=== PATIENT | male | born 2000 | race American Indian/Alaskan Native ===

== ENCOUNTER 2018-06-03 21:06 | Emergency (ER) | payer MEDICAID, OTHER ==
[2018-06-03 21:13] VITALS: BMI 28.0
--- NOTE | 2018-06-03 21:24 | ED PDOC ---
Arrival/HPI - General Chief Complaint: Abnormal Skin Integrity Time Seen by Provider: 06/03/18 21:18 Historian: Patient - History of Present Illness Narrative History of Present Illness (Text): 06/03/18 21:21 17 year old male, with no significant past medical history, presents to the emergency department complaining of laceration to the left inner lip s/p being hit with a baseball 25 minutes prior to arrival. Patient reports the baseball hit his mouth directly chipping his tooth which cut his lip. Patient reports minimal pain, but denies any chest pain, shortness of breath, nausea, vomiting, back pain, neck pain, headache, dizziness, or any other complaints. Time/Duration: Other (25 minutes) Symptom Onset: Sudden Activities at Onset: Light Context: Other (baseball) Past Medical History - Provider Review Nursing Documentation Reviewed: Yes - Reproductive Currently Lactating: No - Psychiatric Hx Depression: No Hx Emotional Abuse: No Hx Physical Abuse: No Hx Substance Use: Yes - Anesthesia Hx Anesthesia: No - Suicidal Assessment Feels Threatened In Home Enviroment: No Family/Social History - Physician Review Nursing Documentation Reviewed: Yes Family/Social History: No Known Family HX Smoking Status: Current Some Days Smoker Hx Alcohol Use: No Hx Substance Use: Yes Substance used: weed Hx Substance Use Treatment: No Allergies/Home Meds Allergies/Adverse Reactions: Allergies No Known Allergies Allergy (Verified 06/03/18 21:15) Review of Systems - Physician Review All systems were reviewed & negative as marked: Yes - Review of Systems Respiratory: absent: SOB Cardiovascular: absent: Chest Pain Gastrointestinal: absent: Diarrhea, Nausea, Vomiting Musculoskeletal: absent: Back Pain, Neck Pain Skin: Laceration (to left inner lip) Neurological: absent: Headache, Dizziness Physical Exam - Physical Exam Narrative Physical Exam (Text): Gen: VS reviewed, alert, well developed, well nourished, nontoxic, mild distress. ENT: normal pharynx. Eye: EOMI, PERRL. Neck: no JVD, supple, no adenopathy. CV: regular rate, regular rhythm, no rubs, no murmur, no gallops, S1, S2, pulses equal and strong. Pulm: no distress, clear to auscultation, no wheeze, no rhonchi, breath sounds equal, no rales. Abd: soft, nontender, no guarding, no rebound, no rigidity, normal bowel sounds. Ext: no edema. Skin: less than 1cm laceration to the left corner of the mouth involving the mucosal side. Good strength of muscles. good color, no rash, no cyanosis. Psych: responds appropriately to questions, normal affect. Neuro: oriented x 3, CN2-12 intact grossly, motor intact, sensation intact. Vital Signs Reviewed: Yes Medical Decision Making ED Course and Treatment: 06/03/18 21:21 Impression: 17 year old male presents complaining of a laceration to the left inner lip s/p being hit with a baseball. Plan: -- Lidocaine -- Laceration repair -- Reassess and disposition Progress Notes: 06/03/18 21:37 PROCEDURE: LACERATION REPAIR Performed by the emergency provider Location: Length: cm Description: {"clean wound edges","no foreign bodies"} Distal CMS: Normal. No deficits. Neurovascularly intact. Anesthesia: Lidocaine 1% Preparation: The wound was cleaned with NS and Bet[place]. The area was prepped and draped in the usual sterile fashion. Exploration: The wound was explored and no foreign bodies were found. Procedure: The wound was closed with nylon. There was {good / appropriate / adequate / loose} approximation. In total, were used. Post-Procedure: Good closure and hemostasis. The patient tolerated the procedure well and there were no complications. CSM remains intact. Post procedure dressing applied. 06/03/18 22:47 patient reports he developed a mild headache just prior to laceration repair. clinically benign headache, no LOC with head injury, no vomiting. symptoms consistent with concussion. 06/03/18 22:52 patient was seen for low risk head injury. no LOC at injury onset, no headache at injury onset, no vomiting. laceration repaired did not have involvement of the [place]. patient was encouraged not to open his mouth wide as to not rip the sutures. tetanus updated. despite getting hit in the face with softball, there was no sig tendernss on exam and imaging not indicated. Procedure: Wound Repair - Time Performed Time Performed: 22:45 - Time Out Time Out: Side verified, Sterile procedures obs. - Consent Obtained Consent obtained: Verbal - Indications Indication(s):: Laceration (left cheek and corner of mouth) - Location Shape:: Linear, Stellate Dimensions Length cm: 1cm Depth:: Muscle - Anesthetic Technique Local/Regional Anesthetic:: Lidocaine 1% - Debris Debris:: None - Irrigated Irrigated with ml of normal saline: 5cc 1% lido without epi - Complexity Complexity:: Complex (3 layer) - Wound repair method Sutures:: # (40 vicryl, 7 sutures), Size - Muscle repiar layer closed with Muscle repair layer closed with:: # (4-0 vicryl, 2 sutures with good approximation of muscle layer) - Complications Complications: none - Patient tolerated procedure Patient Tolerated Procedure:: Well - Scribe Statement The provider has reviewed the documentation as recorded by the Ana Rosa Malave Provider Scribe Attestation: All medical record entries made by the Scribe were at my direction and personally dictated by me. I have reviewed the chart and agree that the record accurately reflects my personal performance of the history, physical exam, medical decision making, and the department course for this patient. I have also personally directed, reviewed, and agree with the discharge instructions and disposition. Disposition/Present on Arrival - Present on Arrival Any Indicators Present on Arrival: No History of DVT/PE: No History of Uncontrolled Diabetes: No Urinary Catheter: No History of Decub. Ulcer: No History Surgical Site Infection Following: None - Disposition Have Diagnosis and Disposition been Completed?: Yes Diagnosis: Laceration of lip, Head injury Disposition: HOME/ ROUTINE Disposition Time: 22:50 Patient Plan: Discharge Patient Problems: Current Active Problems Problem Status Onset Head injury Acute Laceration of lip Acute Condition: STABLE Discharge Instructions (ExitCare): Laceration Repair With Stitches (DC), Minor Head Injury Additional Instructions: The sutures that were placed are absorbable. You do not need to have the removed. They will dissolve over time. KIMBERLY LOPEZ, thank you for letting us take care of you today. Your provider was Dr.Lamont Marlow and you were treated for lip laceration. The emergency medical care you received today was directed at your acute symptoms. If you were prescribed any medication, please fill it and take as directed. It may take several days for your symptoms to resolve. Return to the Emergency Department if your symptoms worsen, do not improve, or if you have any other problems. Please contact your doctor or call one of the physicians/clinics you have been referred to that are listed on the Patient Visit Information form that is included in your discharge packet. Bring any paperwork you were given at discharge with you along with any medications you are taking to your follow up visit. Our treatment cannot replace ongoing medical care by a primary care provider outside of the emergency department. Thank you for allowing the [facility] team to be part of your care today. If you had an X-Ray or CT scan: A Radiologist will review the ED reading if any change in treatment is needed we will contact you. If you had a blood, urine, or wound culture: It will take several days for the results, if any change in treatment is needed we will contact you. If you had an STI test: It will take 48 hours for the results. Please call after 1 week if you have not heard back. Prescriptions: Ibuprofen [Motrin Tab] 600 mg PO QID #42 tab Referrals: Monisha Carrero MD [Primary Care Provider] - Follow up with primary Forms: [employer] ([place])
[2018-06-03] MEDS ORDERED: Lidocaine 1% Inj (20ml) IJ STA (21:25)
[2018-06-03] MEDS ORDERED: Lidocaine 1% 5ml Abboject ONE (21:29)
[2018-06-03] MEDS ORDERED: TDAP Vaccine 0.5 mL Syr IM ONE (22:48)
[2018-06-03 23:21] VITALS: BP 126/80; PULSE 78; RESP 18; TEMP 98.7; O2SAT 99
== END 2018-06-03 23:22 | disposition home or self-care (01) ==
LOC: ED 21:06
DX: S01.511A Laceration without foreign body of lip, initial encounter (principal); W21.03XA Struck by baseball, initial encounter; Y92.89 Other specified places as the place of occurrence of the external cause